=== PATIENT | male | born 1985 | race Caucasian/White ===

== ENCOUNTER 2021-03-05 00:26 | Emergency (ER) | payer MEDICAID, OTHER ==
[~2021-03-05] VITALS: Ht 175.3 cm; Wt 93.2 kg
[~2021-03-05 00:26] MED LIST: CARI350T PO; ONDA8TAB9 PO
[2021-03-05 00:30] VITALS: BP 139/96
== END 2021-03-05 04:36 | disposition home or self-care (01) ==
LOC: ER 00:26
DX: R06.02 Shortness of breath (principal); R07.89 Other chest pain; R05 Cough; K21.9 Gastro-esophageal reflux disease without esophagitis; Z87.01 Personal history of pneumonia (recurrent); Z90.89 Acquired absence of other organs; Z98.890 Other specified postprocedural states; Z72.89 Other problems related to lifestyle; Z79.899 Other long term (current) drug therapy
CPT/HCPCS: 71045; 93005; 99283